=== PATIENT | female | born 1940 | race Caucasian/White ===

== ENCOUNTER → 2016-07-09 | Outpatient (CLI) | payer OTHER ==
[~2016-07-09] MED LIST: CALCIUM PO; LISINOPRIL5 MG PO; SERTRALINE HCL100 MG PO; SIMVASTATIN20 MG PO; VITAMIN D50000 UNIT PO; ZOCOR PO; ZOLOFT PO
--- NOTE | ~2016-07-09 | MY11 ---
[facility] A Service of [facility] RADIOLOGY TEXT RESULTS PATIENT: SANDRITA JOYCE LOCATION: [facility] : 44 UNIT #: [id number] AGE: [address]: MARIEL GUNDERSON APRN SEX: F ORDER DR: [id number] [facility] [address] [place], [place] [address] [id number] O MR#: [id number] Acc #: [id number] NAME: SANDRITA JOYCE : 1940 SEX: F STUDY DATE/TIME: 07/09/2016 10:55 UNIT: [facility] ROOM: STUDY DESCRIPTION: MY Mammogram Screening Dig Diogenes Attending Physician: Mariel Gunderson M.D. Ordering Physician: Mariel Gunderson M.D. Primary Care Physician: Mariel Gunderson M.D. MEDICAL IMAGING REPORT This report is preliminary unless electronic signature is present EXAM Bilateral Digital Screening Mammogram with CAD INDICATION Breast cancer screening. 76-year-old asymptomatic female who reports a sister with postmenopausal breast cancer. COMPARISON 06/08/2015, 06/02/2014, 04/05/2013, 01/02/2011, and 12/28/2009. FINDINGS The breasts are almost entirely fatty. No suspicious findings are present. IMPRESSION No mammographic evidence of malignancy. Annual screening mammography and clinical breast exam are recommended. A result letter will be sent to the patient. Patients over the age of 40 are entered into a reminder system with target due date for the next mammogram. BIRADS: 1 Negative Dictated by... Shay Tejeda M.D. THIS IS AN ELECTRONICALLY VERIFIED REPORT Shay Tejeda M.D. at 07/12/2016 2:47 PM PRATIBHA/maryuri [facility] A Service of [facility] RADIOLOGY TEXT RESULTS PATIENT: SANDRITA JOYCE LOCATION: [facility] : 44 UNIT #: [id number] AGE: [address]: MARIEL GUNDERSON APRN SEX: F ORDER DR: TD: 07/09/2016 13:11 JOB #: [id number] MEDICAL IMAGING REPORT Page 1 of 1 COPY
== END | disposition home or self-care (01) ==
LOC: CWCC 10:32
DX: Z12.31 Encounter for screening mammogram for malignant neoplasm of breast (principal); Z80.3 Family history of malignant neoplasm of breast; Z88.2 Allergy status to sulfonamides
CPT/HCPCS: G0202